=== PATIENT | female | born 1965 | race Caucasian/White ===

== ENCOUNTER 2018-02-26 13:24 | Emergency (ER) | payer MEDICAID ==
[2018-02-26] MEDS: KETOROLAC 30 MG INJ IM (14:11)
== END 2018-02-26 16:20 | disposition home or self-care (01) ==
LOC: FTE 13:24
DX: M54.2 Cervicalgia (principal); M54.9 Dorsalgia, unspecified
CPT/HCPCS: 72040; 72072; 72100; 81025; 96372; 99284-25